=== PATIENT | female | born 1985 | race Two or more races ===

== ENCOUNTER 2018-12-06 15:10 | Inpatient (IN) | payer OTHER ==
[~2018-12-06] VITALS: Ht 165.1 cm; Wt 93.0 kg
[2018-12-07] MEDS ORDERED: IRON325 MG PO (23:45)
[2018-12-07] MEDS ORDERED: PRENATABS RX T1 EACH PO (23:45)
== END 2018-12-10 13:07 | disposition home or self-care (01) | DRG 807 ==
LOC: OB/GYN 12-07 23:42 → LDR 12-07 23:42 → OB/GYN 12-08 15:03
PROVIDERS: ADMIT Obstetrics & Gynecology
PROC: 4A1HXCZ Monitoring of Products of Conception, Cardiac Rate, External Approach (ICD-10-PCS; 2018-12-07)
PROC: 10E0XZZ Delivery of Products of Conception, External Approach (ICD-10-PCS; principal; 2018-12-08)
PROC: 0UQGXZZ Repair Vagina, External Approach (ICD-10-PCS; 2018-12-08)
DX: O71.4 Obstetric high vaginal laceration alone (principal); Z37.0 Single live birth; Z3A.39 39 weeks gestation of pregnancy